=== PATIENT | male | born 1990 | race Native Hawaiian/Other Pacific Islander ===

== ENCOUNTER 2018-04-10 18:45 | Inpatient (IN) | payer OTHER ==
[2018-04-10] MEDS ORDERED: Sodium Chloride 0.9% 1,000 ML IV STA (19:49)
[2018-04-10 20:07] LABS: BASO % 0.4 % (0.0-2.0); EOS # 0.1 K/uL (0.0-0.7); EOS % 0.7 % (0.0-4.0); LYMPH # 0.9 K/uL (1.0-4.3); MEAN CELL VOLUME 78.4 fl (80.0-94.0); MEAN CORPUSCULAR HEMOGLOBIN 26.2 pg (27.0-31.0); MEAN CORPUSCULAR HGB CONC 33.5 g/dL (33.0-37.0); MEAN PLATELET VOLUME 8.2 fl (7.2-11.7); MONO # 0.5 K/uL (0.0-0.8); NEUT # 11.6 K/uL (1.8-7.0); NEUT % 87.9 % (50.0-75.0); NRBC % 0.1 % (0.0-0.0); PLATELET COUNT 263 K/uL (130-400); RED CELL DISTRIBUTION WIDTH 12.7 % (11.5-14.5); WHITE BLOOD COUNT 13.2 K/uL (4.8-10.8)
[2018-04-10] MEDS ORDERED: Sodium Chloride 0.9% 50 ML IV ONE (20:10)
[2018-04-10] MEDS ORDERED: Iohexol 300 100 ML IJ ONE (20:10)
[2018-04-10 20:14] LABS: ALB/GLOB RATIO 1.4 (1.0-2.1); ALBUMIN 4.5 g/dL (3.5-5.0); ALT/SGPT 52 U/L (21-72); AST/SGOT 30 U/L (17-59); BLOOD UREA NITROGEN 7 mg/dl (9-20); CALCIUM 9.6 mg/dL (8.4-10.2); GFR NON-AFRICAN AMERICAN > 60
[2018-04-10 20:55] LABS: BANDS 4 % (0-2); EOSINOPHIL 1 % (0-7); LYMPHOCYTE 7 % (20-50); MONOCYTE 3 % (0-10); NEUTROPHIL 85 % (42-75); PLATELET ESTIMATE NORMAL (NORMAL); TOTAL CELLS COUNTED 100
[2018-04-10 20:56] LABS: LARGE PLATELETS PRESENT
--- NOTE | 2018-04-10 21:23 | ED PDOC ---
HPI: Abdomen Time Seen by Provider: 04/10/18 19:25 Chief Complaint (Nursing): Abdominal Pain Chief Complaint (Provider): Abdominal Pain History Per: Patient History/Exam Limitations: no limitations Onset/Duration Of Symptoms: Days, Gradual Current Symptoms Are (Timing): Still Present Location Of Pain/Discomfort: RLQ Additional Complaint(s): 27 y/o male with no significant PMHx presents to the ED for evaluation of abdominal pain since 11 AM of gradual onset. Patient states pain is localized in the RLQ and is constant. Patient reports pain is non-radiating and associated with a decreased appetite. Patient was seen by [facility] and sent to the ER for further evaluation and possible appendicitis. Denies nausea, vomiting, diarrhea, constipation and urinary symptoms. PMD: none Past Medical History Reviewed: Historical Data, Nursing Documentation, Vital Signs Vital Signs: Last Vital Signs Temp 98.8 F 04/10/18 18:50 Pulse 78 04/10/18 18:50 Resp 16 04/10/18 18:50 BP 148/90 04/10/18 18:50 Pulse Ox 99 04/10/18 18:50 - Medical History PMH: No Chronic Diseases - Surgical History Surgical History: No Surg Hx - Family History Family History: States: No Known Family Hx - Social History Current smoker - smoking cessation education provided: No Ex-Smoker (has not smoked in the last 12 months): Yes (11 months ago) Alcohol: Occasional Drugs: Denies - Home Medications Home Medications: Ambulatory Orders Medication Instructions Recorded No Known Home Med 04/10/18 - Allergies Allergies/Adverse Reactions: Allergies Allergy/AdvReac Type Severity Reaction Status Date / Time No Known Allergies Allergy Verified 04/10/18 18:49 Review of Systems ROS Statement: Except As Marked, All Systems Reviewed And Found Negative Gastrointestinal: Positive for: Abdominal Pain, Other (Decreased appetite ). Negative for: Nausea, Vomiting, Diarrhea, Constipation Genitourinary Male: Negative for: Dysuria, Frequency, Hematuria Physical Exam - Reviewed Nursing Documentation Reviewed: Yes Vital Signs Reviewed: Yes - Physical Exam Appears: Positive for: No Acute Distress Head Exam: Positive for: ATRAUMATIC, NORMOCEPHALIC Skin: Positive for: Warm, Dry Eye Exam: Positive for: EOMI, PERRL ENT: Negative for: Pharyngeal Erythema, Tonsillar Exudate Neck: Positive for: Painless ROM, Supple Cardiovascular/Chest: Positive for: Regular Rate, Rhythm. Negative for: Murmur Respiratory: Positive for: Normal Breath Sounds. Negative for: Wheezing Gastrointestinal/Abdominal: Positive for: Tenderness (RLQ Tenderness, (+) McBurney's Point Tenderness). Negative for: Mass, Guarding, Rebound, Other (Rovsings Sign, SOADS or Obturators) Back: Positive for: Normal Inspection. Negative for: Decreased ROM Extremity: Positive for: Normal ROM. Negative for: Deformity Lymphatic: Negative for: Adenopathy Neurologic/Psych: Positive for: Alert. Negative for: Motor/Sensory Deficits - Laboratory Results Result Diagrams: 04/10/18 19:58 04/10/18 19:58 - ECG O2 Sat by Pulse Oximetry: 99 (RA) Pulse Ox Interpretation: Normal Medical Decision Making Medical Decision Making: Time: 1999 Impression: RLQ Pain Differentials include but not limited to appendicitis, enteritis, mesenteric adenitis and colitis Plan: -- CT Abd/Pelvis IV Contrast Only -- CMP -- ED Urine Dipstick -- CBC with Differentials -- Dextrose 5%-0.9% NS 500 ml IV 100 mls/hr -- Sodium Chloride IV 1000 mls/hr -- Toradol 15 mg IVP -- IV Insertion Time: 2200 CT RESULTS FINDINGS: LUNG BASES: The lung bases appear clear. No pleural effusions are seen. LIVER: Unremarkable GALLBLADDER AND BILE DUCTS: The gallbladder appears within normal limits. No radioopaque gallstones are seen. No biliary ductal dilatation is evident. PANCREAS: Unremarkable SPLEEN: Unremarkable ADRENAL GLANDS: Unremarkable KIDNEYS, URETERS, AND BLADDER: The kidneys are within normal limits. There is no hydronephorsis or hydroureter. No urinary calculi are seen. STOMACH AND BOWEL: Unremarkable appearance of the stomach and bowel. No evidence of bowel obstruction. No evidence suggesting entertitis or colitis. APPENDIX: Acute appendicitis is noted within the inflammatory's stranding surrounding the inflamed appendix. No abscess or rupture. Small reactive lymph nodes in the vicinity. PERITONEUM: No free fluid. No free air. LYMP NODES: No bulky lymphadenopathy is evident. REPRODUCTIVE: Unremarkable as visualized VASCULATURE: No evidence of abdominal aortic aneurysm. BONES: No aggressive appearing osseous lesion. No acute osseous pathology is evident IMPRESSION: Acute appendicitis. No abscess or rupture. Small reactive lymph nodes in the vicinity. Electronically signed on Apr 10, 2018 10:01:50 PM EDT by: Brice Tejeda M.D., MIYA Certified By ABR and CBCCT. SAMUEL Bustos Surgery resident for [facility] Surgeon concert singer. Pt to be hospitalized under his service DW pt findings and plan of care. Scribe Attestation: Documented by Laura Hyde, acting as a scribe Dorothea Zapien MD. Provider Scribe Attestation: All medical record entries made by the Scribe were at my direction and personally dictated by me. I have reviewed the chart and agree that the record accurately reflects my personal performance of the history, physical exam, medical decision making, and the department course for this patient. I have also personally directed, reviewed, and agree with the discharge instructions and disposition. Disposition - Clinical Impression Clinical Impression: Appendicitis - Disposition Disposition Time: 22:00 Condition: SERIOUS Forms: [facility] (Grenadian) - Pt Status Changed To: Hospital Disposition Of: Inpatient - Admit Certification Admit to Inpatient:: After my assessment, the patient will require hospitalization for at least two midnights. This is because of the severity of symptoms shown, intensity of services needed, and/or the medical risk in this patient being treated as an outpatient. - POA Present On Arrival: None
[2018-04-10] MEDS ORDERED: Piperacillin/Tazobact 3.375 GM in Sodium Chloride 0.9% 100 ML IVPB STA (22:09)
[2018-04-10] MEDS ORDERED: Piperacillin/Tazobact 3.375 gm Inj IVPB ONE (22:38)
[2018-04-10 22:46] LABS: INR 1.2
[2018-04-10 22:49] LABS: PARTIAL THROMBOPLASTIN TIME 29.1 Seconds (25.6-37.1)
--- NOTE | 2018-04-11 01:26 | CP.PCM.HP ---
<Jessica Bustos - Last Filed: 04/11/18 08:03> History of Present Illness - History of Present Illness History of Present Illness: GENERAL SURGERY HISTORY AND PHYSICAL FOR DR. WAKEFIELD 27yo [place] male with no PMHx presents to the ED with abdominal pain. The pain began this morning in the RLQ. He went to [facility] where he was told he may have appendicitis or a kidney stone and was sent to the ED for a CT scan. He was given Toradol 60mg IM at 6:25PM by the urgent care center. After the Toradol, the patient states his pain resolved. He denies nausea or vomiting or diarrhea. Last BM was this AM and was normal. Pt had PMD in [place] but has not established care with a PMD since his move to the 2 years ago. PMHx: none Surgeries: none Allergies: none Medications: none Social history: drinks etoh once a week, denies tobacco use or illicit drug use Present on Admission - Present on Admission Any Indicators Present on Admission: No Review of Systems - Review of Systems All systems: reviewed and no additional remarkable complaints except (as per HPI) Past Patient History - Past Social History Alcohol: Occasional Drugs: Denies - PSYCHIATRIC Hx Substance Use: No - SURGICAL HISTORY Hx Surgeries: No Hx Appendectomy: Yes Meds Allergies/Adverse Reactions: Allergies Allergy/AdvReac Type Severity Reaction Status Date / Time egg Allergy Mild PAIN Verified 04/11/18 02:25 Physical Exam - Constitutional Appears: Well, Non-toxic, No Acute Distress - Head Exam Head Exam: ATRAUMATIC, NORMAL INSPECTION - Eye Exam Eye Exam: EOMI, Normal appearance - ENT Exam ENT Exam: Mucous Membranes Moist - Respiratory Exam Respiratory Exam: NORMAL BREATHING PATTERN. absent: Respiratory Distress - Cardiovascular Exam Cardiovascular Exam: +S1, +S2 - GI/Abdominal Exam GI & Abdominal Exam: Soft, Tenderness (mild tenderness RLQ over McBurneys point). absent: Distended, Firm, Guarding, Rebound, Rigid - Neurological Exam Neurological exam: Alert, CN II-XII Intact, Oriented x3 - Psychiatric Exam Psychiatric exam: Normal Affect, Normal Mood - Skin Skin Exam: Dry, Normal Color, Warm Results - Vital Signs Recent Vital Signs: Last Vital Signs Temp 98.8 F 04/10/18 18:50 Pulse 78 04/10/18 18:50 Resp 16 04/10/18 18:50 BP 148/90 04/10/18 18:50 Pulse Ox 99 04/10/18 22:44 - Labs Result Diagrams: 04/11/18 05:35 04/11/18 05:35 Labs: Laboratory Results - last 24 hr 04/10/18 04/10/18 04/10/18 19:58 19:58 22:30 WBC 13.2 H RBC 5.70 Hgb 15.0 Hct 44.7 MCV 78.4 L MCH 26.2 L MCHC 33.5 RDW 12.7 Plt Count 263 MPV 8.2 Neut % (Auto) 87.9 H Lymph % (Auto) 7.0 L [place] % (Auto) 4.0 Eos % (Auto) 0.7 Baso % (Auto) 0.4 Neut # (Auto) 11.6 H Lymph # (Auto) 0.9 L [place] # (Auto) 0.5 Eos # (Auto) 0.1 Baso # (Auto) 0.0 Neutrophils % (Manual) 85 H Band Neutrophils % 4 H Lymphocytes % (Manual) 7 L Monocytes % (Manual) 3 Eosinophils % (Manual) 1 Platelet Estimate Normal Large Platelets Present RBC Morphology Normal PT 13.0 INR 1.2 APTT 29.1 Sodium 139 Potassium 4.1 Chloride 102 Carbon Dioxide 26 Anion Gap 15 BUN 7 L Creatinine 1.2 Est GFR ( Amer) > 60 Est GFR (Non-Af Amer) > 60 Random Glucose 104 Calcium 9.6 Total Bilirubin 2.5 H AST 30 ALT 52 Alkaline Phosphatase 51 Total Protein 7.7 Albumin 4.5 Globulin 3.2 Albumin/Globulin Ratio 1.4 Blood Type Antibody Screen BBK History Checked 04/10/18 22:30 WBC RBC Hgb Hct MCV MCH MCHC RDW Plt Count MPV Neut % (Auto) Lymph % (Auto) [place] % (Auto) Eos % (Auto) Baso % (Auto) Neut # (Auto) Lymph # (Auto) [place] # (Auto) Eos # (Auto) Baso # (Auto) Neutrophils % (Manual) Band Neutrophils % Lymphocytes % (Manual) Monocytes % (Manual) Eosinophils % (Manual) Platelet Estimate Large Platelets RBC Morphology PT INR APTT Sodium Potassium Chloride Carbon Dioxide Anion Gap BUN Creatinine Est GFR ( Amer) Est GFR (Non-Af Amer) Random Glucose Calcium Total Bilirubin AST ALT Alkaline Phosphatase Total Protein Albumin Globulin Albumin/Globulin Ratio Blood Type AB POSITIVE Antibody Screen Negative BBK History Checked No verified bt Assessment & Plan - Assessment and Plan (Free Text) Assessment: 27yo [place] male with no PMHx presented with abdominal pain and found to have appendicitis CT = acute appendicitis - Afebrile, VSS - Leukocytosis WBC 13.2 - NPO - IV fluids - IV Antibiotics - Plan for possible OR for laparoscopic appendectomy - Discussed plan with Dr. Ashu Bustos PGY-4 <Jake Wakefield - Last Filed: 04/16/18 19:29> Results - Vital Signs Recent Vital Signs: Last Vital Signs Temp 97.5 F L 04/12/18 16:47 Pulse 68 04/12/18 16:47 Resp 18 04/12/18 16:47 BP 126/79 04/12/18 16:47 Pulse Ox 99 04/12/18 16:47 - Labs Result Diagrams: 04/12/18 06:00 04/11/18 05:35 Attending/Attestation - Attestation I have personally seen and examined this patient.: Yes I have fully participated in the care of the patient.: Yes I have reviewed all pertinent clinical information: Yes Notes (Text): Pt was seen and examined at bedside Agree with above note and assessment Pt with RLQ pain and nausea Abdomen: soft, ND, Tender in RLQ Labs and Radiology reviewed Ass: Acute Appendicitis with Leucocytosis Plan: OR for Lap Appendectomy possible Open Consent IV antibiotics Plan d.w pt in detail Risk and benefit explained in detail.
[2018-04-11] MEDS: Lactated Ringer's 1,000 ML IV SCH ×2 (03:10→12:31)
[2018-04-11] MEDS: Piperacillin/Tazobact 3.375 GM in Sodium Chloride 0.9% 100 ML IVPB SCH ×3 (04:09→21:56)
[2018-04-11 06:06] LABS: BASO % 0.5 % (0.0-2.0); EOS # 0.4 K/uL (0.0-0.7); EOS % 4.2 % (0.0-4.0); HEMOGLOBIN 13.8 g/dL (12.0-18.0); LYMPH # 2.1 K/uL (1.0-4.3); LYMPH % 20.7 % (20.0-40.0); MEAN CELL VOLUME 79.7 fl (80.0-94.0); MEAN CORPUSCULAR HEMOGLOBIN 26.4 pg (27.0-31.0); MEAN CORPUSCULAR HGB CONC 33.1 g/dL (33.0-37.0); MEAN PLATELET VOLUME 8.2 fl (7.2-11.7); MONO # 0.8 K/uL (0.0-0.8); MONO % 7.5 % (0.0-10.0); NEUT # 6.9 K/uL (1.8-7.0); NEUT % 67.1 % (50.0-75.0); NRBC % 0.1 % (0.0-0.0); RBC 5.21 Mil/uL (4.40-5.90); RED CELL DISTRIBUTION WIDTH 13.1 % (11.5-14.5); WHITE BLOOD COUNT 10.3 K/uL (4.8-10.8)
[2018-04-11 06:16] LABS: INR 1.2; PROTHROMBIN TIME 13.2 Seconds (9.8-13.1)
[2018-04-11 06:18] LABS: PARTIAL THROMBOPLASTIN TIME 36.2 Seconds (25.6-37.1)
[2018-04-11 06:38] LABS: BLOOD UREA NITROGEN 9 mg/dl (9-20); CALCIUM 8.8 mg/dL (8.4-10.2); GFR NON-AFRICAN AMERICAN > 60
--- NOTE | 2018-04-11 09:17 | CARD ---
APPROVED REPORT Date of service: 04/10/2018 EKG Measurement Heart [id number] <Conclusion> Sinus bradycardia Early repolarization Otherwise normal ECG
--- NOTE | 2018-04-11 09:44 | RAD ---
Date of service: 04/10/2018 HISTORY: admission COMPARISON: No prior. FINDINGS: LUNGS: No active pulmonary disease. PLEURA: No significant pleural effusion identified, no pneumothorax apparent. CARDIOVASCULAR: Normal. OSSEOUS STRUCTURES: No significant abnormalities. VISUALIZED UPPER ABDOMEN: Normal. OTHER FINDINGS: None. IMPRESSION: No acute cardiopulmonary disease appreciated.
--- NOTE | 2018-04-11 12:30 | CT ---
Date of service: 04/10/2018 PROCEDURE: CT Abdomen and Pelvis with contrast HISTORY: RLQ pain COMPARISON: None available. TECHNIQUE: Contrast dose: 95 mL Omnipaque 300 Radiation dose: Total exam DLP = 642.19 mGy-cm. This CT exam was performed using one or more of the following dose reduction techniques: Automated exposure control, adjustment of the mA and/or kV according to patient size, and/or use of iterative reconstruction technique. FINDINGS: LOWER THORAX: No visible consolidation, pleural effusion, or pneumothorax. LIVER: Unremarkable. GALLBLADDER AND BILE DUCTS: Unremarkable. PANCREAS: Unremarkable. SPLEEN: Unremarkable. ADRENALS: Unremarkable. KIDNEYS AND URETERS: The kidneys enhance symmetrically. No hydronephrosis or obstructing calculus identified. VASCULATURE: No aortic aneurysm. BOWEL: Stomach is nondistended. Lack of oral contrast limits evaluation for bowel pathology. Bowel loops appear within normal limits of caliber without evidence of obstruction. APPENDIX: The appendix is dilated measuring approximately 9 mm in diameter with associated inflammatory changes. Adjacent subcentimeter lymph nodes. Appearance consistent with acute appendicitis. PERITONEUM: Small pelvic free fluid. No definite free air. LYMPH NODES: Sub cm mesenteric lymph nodes, nonspecific. BLADDER: Distended urinary bladder appears otherwise unremarkable. REPRODUCTIVE: Unremarkable. BONES: No acute osseous abnormality is detected. OTHER FINDINGS: None. IMPRESSION: The appendix is dilated measuring approximately 9 mm in diameter with associated inflammatory changes. Adjacent subcentimeter lymph nodes. Appearance consistent with acute appendicitis. Preliminary impression was provided by [employer].
[2018-04-11] MEDS ORDERED: Propofol 10 mg/ml Inj (20 ML) ONE (14:50)
[2018-04-11] MEDS ORDERED: Lidocaine 4% (Laryng-O-Jet) Kit MM ONE (14:51)
[2018-04-11] MEDS ORDERED: Succinylcholine 200 mg/10 ml Inj IV ONE (14:51)
[2018-04-11] MEDS ORDERED: Neostigmine 1:1000 (1 mg/ml) Inj ONE (14:51)
[2018-04-11] MEDS ORDERED: Rocuronium 10 mg/ml (5 ml) ONE (14:51)
[2018-04-11] MEDS ORDERED: Lidocaine 2% PF (10 ml) Amp ONE (14:52)
[2018-04-11] MEDS ORDERED: Bupivacaine HCl 0.5% PF (30 ml) Inj ONE (14:52)
[2018-04-11] MEDS ORDERED: Midazolam 2 MG/2 ML VIAL ONE (14:53)
[2018-04-11] MEDS ORDERED: Lactated Ringer's 1,000 ML IV ONE ×2 (16:17→17:20)
[2018-04-11] MEDS ORDERED: Piperacillin/Tazobact 3.375 gm Inj IVPB ONE (16:25)
[2018-04-11] MEDS ORDERED: Dexamethasone 4 mg/1 ml ONE (16:30)
[2018-04-11] MEDS ORDERED: Bupivacaine HCl 0.5% PF (30 ml) Inj IJ ONE (16:39)
[2018-04-11] MEDS ORDERED: Lidocaine 2% PF (10 ml) Amp INJ ONE (16:39)
[2018-04-11] MEDS ORDERED: Cellulose Hemostat 2X3 Sheet TP ONE (17:26)
--- NOTE | 2018-04-11 18:08 | PCM.SURG1 ---
Surgeon's Initial Post Op Note - Surgeon's Notes Surgeon: Ashu Vascular Radiologist: Blanca PGY4 Type of Anesthesia: General Endo, Local Pre-Operative Diagnosis: Appendicitis Operative Findings: Acutely inflamed appendix Post-Operative Diagnosis: same Operation Performed: laparoscopic appendectomy w. partial cecectomy Specimen/Specimens Removed: appendix Estimated Blood Loss: EBL {In ML}: 5 Blood Products Given: N/A Drains Used: No Drains Post-Op Condition: Good Date of Surgery/Procedure: 04/11/18 Time of Surgery/Procedure: 18:07
[2018-04-11] MEDS ORDERED: Oxycodone/Acetaminophen 5/325 mg Tab PO PRN (18:09)
[2018-04-11] MEDS ORDERED: Lactated Ringer's 1,000 ML IV SCH (18:15)
[2018-04-12] MEDS: Piperacillin/Tazobact 3.375 GM in Sodium Chloride 0.9% 100 ML IVPB SCH (03:52)
[2018-04-12] MEDS: Lactated Ringer's 1,000 ML IV SCH (04:03)
[2018-04-12 06:29] LABS: HEMOGLOBIN 13.6 g/dL (12.0-18.0); MEAN CELL VOLUME 79.2 fl (80.0-94.0); MEAN CORPUSCULAR HEMOGLOBIN 26.7 pg (27.0-31.0); MEAN CORPUSCULAR HGB CONC 33.7 g/dL (33.0-37.0); RBC 5.1 Mil/uL (4.40-5.90); RED CELL DISTRIBUTION WIDTH 12.9 % (11.5-14.5); WHITE BLOOD COUNT 9.7 K/uL (4.8-10.8)
--- NOTE | 2018-04-12 15:41 | CP.PCM.DIS ---
Provider - Provider Date of Admission: 04/10/18 22:38 Attending physician: Jake Wakefield MD Consults: none Time Spent in preparation of Discharge (in minutes): 30 Diagnosis - Discharge Diagnosis (1) Appendicitis Status: Resolved Hospital Course - Lab Results Lab Results: Micro Results 04/10/18 22:30 Blood-Venous Blood Culture - Preliminary NO GROWTH AFTER 24 HOURS Most Recent Lab Values WBC 9.7 K/uL (4.8-10.8) 04/12/18 06:00 RBC 5.10 Mil/uL (4.40-5.90) 04/12/18 06:00 Hgb 13.6 g/dL (12.0-18.0) 04/12/18 06:00 Hct 40.4 % (35.0-51.0) 04/12/18 06:00 MCV 79.2 fl (80.0-94.0) L 04/12/18 06:00 MCH 26.7 pg (27.0-31.0) L 04/12/18 06:00 MCHC 33.7 g/dL (33.0-37.0) 04/12/18 06:00 RDW 12.9 % (11.5-14.5) 04/12/18 06:00 Plt Count 253 K/uL (130-400) 04/12/18 06:00 MPV 8.2 fl (7.2-11.7) 04/11/18 05:35 Neut % (Auto) 67.1 % (50.0-75.0) 04/11/18 05:35 Lymph % (Auto) 20.7 % (20.0-40.0) 04/11/18 05:35 [place] % (Auto) 7.5 % (0.0-10.0) 04/11/18 05:35 Eos % (Auto) 4.2 % (0.0-4.0) H 04/11/18 05:35 Baso % (Auto) 0.5 % (0.0-2.0) 04/11/18 05:35 Neut # (Auto) 6.9 K/uL (1.8-7.0) 04/11/18 05:35 Lymph # (Auto) 2.1 K/uL (1.0-4.3) 04/11/18 05:35 [place] # (Auto) 0.8 K/uL (0.0-0.8) 04/11/18 05:35 Eos # (Auto) 0.4 K/uL (0.0-0.7) 04/11/18 05:35 Baso # (Auto) 0.0 K/uL (0.0-0.2) 04/11/18 05:35 Neutrophils % (Manual) 85 % (42-75) H 04/10/18 19:58 Band Neutrophils % 4 % (0-2) H 04/10/18 19:58 Lymphocytes % (Manual) 7 % (20-50) L 04/10/18 19:58 Monocytes % (Manual) 3 % (0-10) 04/10/18 19:58 Eosinophils % (Manual) 1 % (0-7) 04/10/18 19:58 Platelet Estimate Normal (NORMAL) 04/10/18 19:58 Large Platelets Present 04/10/18 19:58 RBC Morphology Normal (NORMAL) 04/10/18 19:58 PT 13.2 Seconds (9.8-13.1) H 04/11/18 05:35 INR 1.2 04/11/18 05:35 APTT 36.2 Seconds (25.6-37.1) 04/11/18 05:35 Sodium 142 mmol/l (132-148) 04/11/18 05:35 Potassium 4.0 MMOL/L (3.6-5.0) 04/11/18 05:35 Chloride 107 mmol/L (98-107) 04/11/18 05:35 Carbon Dioxide 30 mmol/L (22-30) 04/11/18 05:35 Anion Gap 9 (10-20) L 04/11/18 05:35 BUN 9 mg/dl (9-20) 04/11/18 05:35 Creatinine 1.3 mg/dl (0.8-1.5) 04/11/18 05:35 Est GFR ( Amer) > 60 04/11/18 05:35 Est GFR (Non-Af Amer) > 60 04/11/18 05:35 Random Glucose 93 mg/dL (75-110) 04/11/18 05:35 Calcium 8.8 mg/dL (8.4-10.2) 04/11/18 05:35 Total Bilirubin 2.5 mg/dl (0.2-1.3) H 04/10/18 19:58 AST 30 U/L (17-59) 04/10/18 19:58 ALT 52 U/L (21-72) 04/10/18 19:58 Alkaline Phosphatase 51 U/L (38-126) 04/10/18 19:58 Total Protein 7.7 G/DL (6.3-8.2) 04/10/18 19:58 Albumin 4.5 g/dL (3.5-5.0) 04/10/18 19:58 Globulin 3.2 gm/dL (2.2-3.9) 04/10/18 19:58 Albumin/Globulin Ratio 1.4 (1.0-2.1) 04/10/18 19:58 Blood Type AB POSITIVE 04/10/18 22:30 Blood Type Confirm AB POSITIVE 04/10/18 05:35 Antibody Screen Negative 04/10/18 22:30 BBK History Checked No verified bt 04/10/18 22:30 - Hospital Course Hospital Course: 27yo male with no PMHx presents to the ED with RLQ abdominal pain on the evening of 04/10. He denied nausea or vomiting or diarrhea. CT showed dilated appendix measuring approximately 9 mm in diameter with associated inflammatory changes. Adjacent subcentimeter lymph nodes. Appearance consistent with acute appendicitis. Patient was taken to the OR for laparoscopic appendectomy on 04/11. On POD#1, pt was tolerating diet, ambulating, and discharged home with prescription for Levaquin for 7 days. Discharge Exam - Head Exam Head Exam: ATRAUMATIC, NORMAL INSPECTION - Eye Exam Eye Exam: EOMI, Normal appearance - Respiratory Exam Respiratory Exam: NORMAL BREATHING PATTERN. absent: Respiratory Distress - Cardiovascular Exam Cardiovascular Exam: +S1, +S2. absent: Tachycardia - GI/Abdominal Exam GI & Abdominal Exam: absent: Distended, Firm, Guarding, Rigid, Soft, Tenderness Additional comments: Band aids in place over laparoscopic incision sites - Neurological Exam Neurological exam: Alert, CN II-XII Intact, Oriented x3 - Skin Skin Exam: Dry, Normal Color, Warm Discharge Plan - Follow Up Plan Condition: SERIOUS Disposition: HOME/ ROUTINE Patient education suggested?: Yes Instructions: Appendectomy, Laparoscopic Surgery (DC) Additional Instructions: follow up with surgeon 1-2 weeks, call to make appointment take full course of antibiotics avoid heavy lifting for 4 weeks May remove band aids 5 days after surgery, leave white steri strips in place, they will fall off on their own over time May shower tomorrow but keep dressings dry, do not take a bath or swim for 2 weeks Referrals: [facility] [Outside] Jake Wakefield MD [Staff Provider] -
[2018-04-12 16:48] VITALS: BP 126/79; PULSE 68; RESP 18; TEMP 97.5; O2SAT 99
--- NOTE | 2018-04-14 04:38 | OP ---
PROCEDURE DATE: 04/11/2018 PREOPERATIVE DIAGNOSES: 1. Acute appendicitis. 2. Leukocytosis. POSTOPERATIVE DIAGNOSES: 1. Acute suppurative appendicitis. 2. Appendicolith. 3. Pelvic abscess. PROCEDURES DONE: 1. Laparoscopic appendectomy. 2. Laparoscopic partial cecectomy. 3. Laparoscopic drainage of pelvic abscess. SURGEON: Jake Wakefield MD EDUCATION DEPARTMENT REGISTRAR: Brice Rios DO, PGY-4 resident ANESTHESIA: General endotracheal tube anesthesia. ESTIMATED BLOOD LOSS: Around 10 mL. DRAINS: None. PATHOLOGY: Appendix with part of the cecum was sent for the pathology. COMPLICATIONS: None. INTRAOPERATIVE FINDINGS: The patient had acute suppurative appendicitis with pelvic abscess, and the patient also had extremely thickened appendicular base with possible appendicolith at the appendix and cecum junction. DESCRIPTION OF PROCEDURE: On intraoperative steps, this is a 27-year-old male who was diagnosed with acute appendicitis with leukocytosis. The patient was consented for the laparoscopic appendectomy, possible open, brought to the OR, placed supine on the operating room table. After induction of the anesthesia, the abdomen was prepped and draped in the usual sterile fashion. A supraumbilical transverse incision was made. After incising the skin, subcutaneous tissue, and the fascia, the Margret port was placed and pneumo was created. Another 5-mm port was placed in suprapubic region, and a 12-mm port was placed in left lower quadrant. After the grasper and dissector were introduced, the patient found to have thickened edematous appendix with pelvic abscess. First, the pelvic abscess was drained. Suction irrigation was done. The periappendicular area was also suctioned and irrigated. The cecum was mobilized. The base of the appendix was appeared to be extremely thickened, edematous with possible appendicolith at that area. Now, the mesoappendix was resected with Harmonic scalpel. The mesentery of the cecum was also mobilized, and it was excised in order to facilitate mobilization of the cecum. Now, the decision was made to do the partial cecectomy due to extremely thickened edematous cecum at the appendicular base, and the partial cecectomy was done using Endo AISHA. The appendix and cecum were sent off the table for the pathology. There was proper hemostasis. Again, the suction irrigation of the pelvic area as well as periappendicular area and perihepatic area was done. After proper hemostasis, all the port was taken out under vision, pneumo was deflated. Umbilical port site was closed in two layers, the fascia with 0 Vicryl interrupted suture, skin with a 4-0 Monocryl. Dry sterile dressing was applied. The patient tolerated the procedure well. Count of instrument and gauze was correct. There were no apparent complications. The patient was extubated in OR and sent to the postanesthesia care unit in stable condition. Jake Wakefield MD
== END 2018-04-12 16:25 | disposition home or self-care (01) | DRG 331 ==
LOC: H.ER 18:45 → H.ERHOLD 22:38 → H.MEDSURG1 04-11 01:46
PROVIDERS: ADMIT Surgery Surgical Critical Care; ATTEND Surgery Surgical Critical Care
PROC: 0DTJ4ZZ Resection of Appendix, Percutaneous Endoscopic Approach (ICD-10-PCS; 2018-04-11)
PROC: 0J9C3ZZ Drainage of Pelvic Region Subcutaneous Tissue and Fascia, Percutaneous Approach (ICD-10-PCS; 2018-04-11)
PROC: 0DBH4ZZ Excision of Cecum, Percutaneous Endoscopic Approach (ICD-10-PCS; principal; 2018-04-11 15:00)
DX: K35.80 Unspecified acute appendicitis (principal); K66.0 Peritoneal adhesions (postprocedural) (postinfection); Z87.891 Personal history of nicotine dependence; Z91.012 Allergy to eggs